=== PATIENT | male | born 1995 | race Caucasian/White ===

== ENCOUNTER 2019-05-14 06:19 | Day surgery (SDC) | payer OTHER ==
[2019-05-14] MEDS ORDERED: LACTATED RINGERS 1,000 ML IV ONE ×2 (06:52→11:22)
--- NOTE | 2019-05-14 07:10 | ANESTHESIA ---
Pre-Anesthesia VS, & Labs - Diagnosis Left shoulder derangement - Procedure Left shoulder scope, SLAP Vital Signs: Temp Pulse Resp BP Pulse Ox 36.1 C L 51 L 20 119/66 98 05/14/19 06:30 05/14/19 06:30 05/14/19 06:30 05/14/19 06:30 05/14/19 06:30 Height 5 ft 8 in Weight (kg) 83.91 kg - NPO >8 hours - Lab Results Lab results reviewed: No Home Medications and Allergies Home Medications: Ambulatory Orders No Known Home Medications 05/13/19 No Known Home Medications 05/13/19 Allergies/Adverse Reactions: Allergies Allergy/AdvReac Type Severity Reaction Status Date / Time No Known Drug Allergies Allergy Verified 05/13/19 12:38 Anes History & Medical History - Anesthetic History Anesthesia Complications: reports: No previous complications Family history of Anesthesia Complications: Denies Family history of Malignant Hyperthermia: Denies - Medical History Cardiovascular: reports: None Pulmonary: reports: None Gastrointestinal: reports: None Urinary: reports: None Neuro: reports: None Musculoskeletal: reports: None, Other Endocrine/Autoimmune: reports: None Blood Disorders: reports: None Skin: reports: None Smoking Status: Never smoker Psychosocial: reports: No issues indicated - Surgical History Orthopedic: Arthroscopic surgery Exam General: Alert Dental: WNL Mouth Opening: Greater than 4 Fingerbreadths Neck Mobility: Normal Mallampati classification: I Thyromental Distance: greater than 6 cm Respiratory: Lungs clear Cardiovascular: Regular rate Mental/Cognitive Status: Alert/Oriented X3 Plan Anesthesia Type: General, Interscalene Block Consent for Procedure(s) Verified and Reviewed: Yes Code Status: Attempt Resuscitation ASA classification: 1-Healthy patient Is this case an emergency?: No
[2019-05-14] MEDS ORDERED: ACETAMINOPHEN 500 MG TABLET PO ONE (07:19)
[2019-05-14] MEDS ORDERED: GABAPENTIN 400 MG CAPSULE ONE (07:20)
[2019-05-14] MEDS ORDERED: CELECOXIB 100 MG CAPSULE PO ONE (07:20)
[2019-05-14] MEDS ORDERED: EPINEPHrine 1 MG/ML AMP ONE (07:34)
[2019-05-14] MEDS ORDERED: BUPIVACAINE 0.25% PF 30 ML VIAL ONE (07:34)
[2019-05-14] MEDS ORDERED: cefTRIAXone 2 GM VIAL ONE (07:38)
[2019-05-14] MEDS ORDERED: CEFTRIAXONE IV ONE (08:00)
[2019-05-14] MEDS ORDERED: SODIUM CHLORIDE 0.9% IV ONE (08:00)
[2019-05-14] MEDS ORDERED: ONDANSETRON 4 MG/2 ML VIAL IVP PRN (11:32)
[2019-05-14] MEDS ORDERED: oxyCODONE 5 MG TABLET PO PRN (11:32)
[2019-05-14] MEDS: HYDROmorphone 1 MG/ML CARPUJECT ONE ×3 (11:38→11:57)
--- NOTE | 2019-05-14 11:42 | OPERATIVE REPORT ---
Operative Report - Other Other Information/Narrative: Date of Surgery: 14 May 2019 Pre-Op Diagnosis: Left shoulder instability Procedure: Left shoulder arthroscopic HAGL repair, Bankart Repair with capsullorhaphy Postop Diagnosis: Bankart tear, HAGL Primary Surgeon: Eliezer Beck Secondary Surgeon: Cyrus Toledo Complications: None EBL: 25 IMPLANTS: 3.0 mm knotless suture tack by Arthrex x4 2. FiberWire x1 POSTOPERATIVE PLAN: 0-2 weeks-Sling at all times. Pendulum exercises 5 times per day. 2-6 weeks-Passive range of motion with the following limits: FF to 120, ER to 30, abduction to 90 degrees 6-12 weeks-Active range of motion in all planes without limitation. Isometric rotator cuff strengthening is allowed 12-16 weeks-Gradually increase strengthening 16 weeks and beyond-Introduce dynamic activities EXAMINATION UNDER ANESTHESIA: ROM: Full Anterior load and shift: Grade 2 with click Posterior load and shift: Normal and equal Inferior sulcus: Normal and equal ARTHROSCOPIC FINDINGS: Rotator interval: Normal Biceps tendon & SLAP: Normal Subscapularis: Normal Rotator Cuff: Normal HAGL: Split tear was seen just anterior to the inferior glenohumeral ligament posterior band. This was repaired side to side Labrum: Anterior labral tear with capsular separation and medialization. P osterior crack was seen but was stable Glenoid Cartilage: Partial thickness cartilage fraying Humeral Head Cartilage: Normal INDICATION FOR SURGERY: 24-year-old male dove for a ball while playing softball 5 months ago and sustained a shoulder dislocation, he reduced it on the field using a Larisa technique. He completed aggressive physical therapy but had persistent instability and did not trust the shoulder. Imaging showed potential labral tear and potential humeral avulsion of the glenohumeral ligaments. Nonoperative managment failed to resolve symptoms. The risks, benefits, and alternatives were discussed. Risks included pain, bleeding, infection, damage to nearby structures, lack of symptom relief, implant complications, stiffness, need for further surgeries, DVT, PE, stroke, and even . He signed a written consent form. PROCEDURE IN DETAIL: The patient was met in the preoperative holding on the day of the procedure. Operative extremity was signed. Consent was verified. He desired to proceed. Regional anesthesia was obtained in the preoperative area. They were brought to the operating room and surrendered to anesthesia. Once general anesthesia was obtained they were placed in the lateral decubitus position with the operative side up. An axillary roll was placed and all bony prominences were well-padded. They were then prepped and draped in the standard sterile fashion. A surgical timeout was held to confirm the patient procedure, identity, procedure, laterality, allergies, images, and antibiotics. All were in agreement we proceeded. Balanced suspension was applied and a standard diagnostic arthroscopy was performed utilizing posterior and anterior superior portal sites. The anterior superior portal site was created under direct visualization. The findings of the diagnostic arthroscopy can be found above. A mid glenoid portal was then created under direct visualization bordering the subscapularis tendon. Identified the capsular injury and prepared it with a rasp and shaver. I took care to not shave deeply as the neurovascular bundle is near this location. Once adequate preparation had been performed a 45 degree suture lasso was used in a single pass on each side of the tear. A #2 FiberWire was then shuttled through the tear and brought out of the posterior cannula in preparation for tying after the Bankart had been repaired. I then used a combination of high and low angled elevators to develop the labral tear and release it from off the glenoid neck. I then used to the pineapple rasp to finalize my release and abraded the bone to a bleeding bed. A sucker shaver was placed in the interval to debride any loose tissue and further abrade the glenoid neck. Any loose cartilage was debrided at that time. I then established a percutaneous 5:30 portal utilizing the Arthrex system. I then placed an anchor at the 6:00 position. The suture was passed using an appropriate 45 degree suture lasso with excellent advancement of the tissue. The labrum was secured using knotless technique. Appropriate tension was confirmed with a probe and the excess suture was cut. Using the same technique additional anchors were placed at 5:00, 4:00, and 3:00 positions. Proper capsular tension was restored and a labral bumper was recreated. I then repaired the capsular injury using a modified rotor knot with 3 1/2 hitches. This repaired side to side tear nicely. Balanced suspension was then released and final images were taken showing the humeral head centered in the glenoid. The portal sites were then closed with 3-0 Monocryl buried. Mastisol and Steri- Strips were applied. A sterile dressing and a sling was applied. He was awakened and transferred to the recovery room.
[2019-05-14] MEDS ORDERED: ONDANSETRON 4 MG/2 ML VIAL ONE (11:53)
[2019-05-14] MEDS ORDERED: HYDROmorphone 0.5 MG/0.5 ML SYRINGE ONE (12:11)
[2019-05-14] MEDS ORDERED: oxyCODONE 5 MG TABLET ONE (12:48)
[2019-05-14 13:39] VITALS: BP 110/63
== END 2019-05-14 06:20 | disposition home or self-care (01) ==
LOC: SDS 06:19
PROVIDERS: ATTEND Orthopaedic Surgery
PROC: 0RQK4ZZ Repair Left Shoulder Joint, Percutaneous Endoscopic Approach (ICD-10-PCS; principal; 2019-05-14 07:30)
DX: S43.492A Other sprain of left shoulder joint, initial encounter (principal); M25.312 Other instability, left shoulder; M19.012 Primary osteoarthritis, left shoulder; M75.22 Bicipital tendinitis, left shoulder
CPT/HCPCS: 29806; A9270; C1713; J1170; J7120